=== PATIENT | male | born 1995 | race African-American/Black ===

== ENCOUNTER 2016-08-04 11:42 | Emergency (ER) | payer BC | END 2016-08-04 11:43 | disposition home or self-care (01) | LOC: ER 11:42 | PROC: 2W3EX1Z Immobilization of Right Hand using Splint (ICD-10-PCS; principal; 2016-08-04) | DX: S62.632A Displaced fracture of distal phalanx of right middle finger, initial encounter for closed fracture (principal); W31.9XXA Contact with unspecified machinery, initial encounter; Y99.0 Civilian activity done for income or pay | CPT/HCPCS: 73140-RT; 99283 ==